=== PATIENT | male | born 1940 | race Two or more races ===

== ENCOUNTER 2021-02-07 10:01 | Emergency (ER) | payer OTHER ==
[~2021-02-07] VITALS: Ht 167.6 cm; Wt 87.5 kg
[2021-02-07 11:32] VITALS: BP 175/83
== END 2021-02-07 13:01 | disposition home or self-care (01) ==
LOC: ER 10:01
DX: L03.031 Cellulitis of right toe (principal); Z86.73 Personal history of transient ischemic attack (TIA), and cerebral infarction without residual deficits
CPT/HCPCS: 73660